=== PATIENT | female | born 1950 | race Caucasian/White ===

== ENCOUNTER 2024-09-25 09:33 | Emergency (ER) | payer MEDICARE, BC, SELFPAY ==
[2024-09-25 09:35] VITALS: BP 126/71; PULSE 56; RESP 18; TEMP 36.5; O2SAT 96; BMI 29.5
--- OUTSIDE RECORDS SUMMARY | 2024-09-25 09:35 | XMS_ITS | Clinical Summary ---
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 40 units = 1 mcg (5000 units = 125 mcg) Active CALCIUM ORAL Take 1 Tablet by mouth once daily. Active acetaminophen (TYLENOL EXTRA STRGTH) 500 mg tablet Take 1,000 mg by mouth. 09/20/2021 Active atorvastatin 20 mg tabletIndication s:Dyslipidemia, goal LDL below 100 Take 1 Tablet (20 mg) by mouth at bedtime. 90 Tablet 3 08/07/2024 Active sertraline 100 mg tabletIndication s:Depressive disorder,Anxiety state Take 1/2 tablet by mouth daily 45 Tablet 3 08/07/2024 Active metoprolol succinate 50 mg sustained-releas e tabletIndication s:ST elevation myocardial infarction involving left circumflex coronary artery (HC) Take 1 Tablet (50 mg) by mouth once daily. 90 Tablet 3 08/07/2024 Active lisinopriL 2.5 mg tabletIndication s:ST elevation myocardial infarction involving left circumflex coronary artery (HC) Take 1 Tablet (2.5 mg) by mouth once daily. 90 Tablet 3 08/07/2024 Active apixaban 5 mg tabletIndication s:Paroxysmal A-fib (HC) Take 1 Tablet (5 mg) by mouth two times daily. 180 Tablet 3 08/07/2024 Active Active Problems Problem Noted Date Diagnosed Date Atherosclerosis of [place] co ronary artery of [place] heart with angina pectoris 03/15/2022 Paroxysmal A-fib 08/03/2021 STEMI (ST elevation myocardial infarction) 06/01 Primary osteoarthritis of left knee 03/22/2019 Overview (05/31/2020): Added automatically from request for surgery [id number] Hyperthyroidism 01/28/2011 Overview (10/24/2012): Graves disease Anxiety state, unspecified 10/23/2006 Mild depression 06/16/2006 Resolved Problems Problem Noted Date Diagnosed Date Resolved Date Anticoagulation monitoring, DOAC 03/30/2022 07/11/2022 Anticoagulation monitoring, INR range 2-3 08/04/2021 03/30/2022 Major depressive disorder, s ksenia episode, mild 03/09/2021 03/15/2022 Low TSH level 01/13/2011 04/24/2019 Paroxysmal atrial fibrillation 10/29/2010 04/24/2019 Unspecified mastoiditis 06/16/200604/06 Overview (06/16/2006): 40% hearing loss Encounters Date Type Department Care Team Description 09/25/2024 Nurse Triage [facility] [address] [place] [address] Christoph Garcia MD thigh pain 08/07/2024 10:50 AM CDT Office Visit [facility] [address] [place] [address] Christoph Garcia MD Medication Management (refills) 08/07/2024 Travel 08/03/2024 Travel from Last 3 Months Immunizations Immunization Administration Dates Next Due AMB Influenza, IIV4 PF (=>6 mos Flulaval,Fluzone Fluarix)(Flu Clinic Only) 12/12/2014 COVID-19 vaccine (Pfizer-Bio NTech 30mcg/0.3mL) 12YO+ TOO-SUCROSE PF, MDV 08/03/2021 COVID-19 vaccine (VoucherlinkBio NTech 30mcg/0.3mL) PF, MDV 05/13/2020,04/22/2020 Influenza Virus, Unspecified 12/18/2007,01/26/20 05 Influenza, High-dose Inactivated 019,10/16/2017,02/24/2016,2015 Influenza, High-dose Quadriv alent Inactivated 11/13/2022,12/15/2021 Influenza, IIV3 (Age 6-35 mos) 12/13/2010 Influenza, IIV3 (Age >=3 years) 12/14/19 11,12/14/2009,12/18/2007,2004 Influenza, IIV4 12/12/2014 Influenza, Inactivated AIIV4 (Age 65+ Years) Preserv Free 02/24/2021,11/14/2019 Influenza, Inactivated IIV3 (Age 65+ Years) Preserv Free 11/05/2018,01/04/2017 Pneumococcal Conj 20-valent (Prevnar 20) 08/03/2021 Pneumococcal conj 13-Valent (Prevnar 13) 03/12/2019 Td (Age >=7 Years) 07/24/1995 Tdap 06/14/2011 Zoster (Zostavax-ZVL, live) 02/29/2008 Family History Medical History Relation Name Comments Heart Disease Brother - jj rcycle accident Heart Disease Mother Hypertension Mother Cancer-breast No Family History Cancer-ovarian No Family History Relation Name Status Comments Brother Mother Social History Tobacco Use Types Packs/Day Years Used Date Smoking Tobacco: Never Smokeless Tobacco: Never Tobacco Cessation:Counseling Given: Yes Alcohol Use Standard Drinks/Week Comments No 0 (1 standard drink = 0.6 oz pur e alcohol) PHQ-2 Answer Date Recorded PHQ-2 TOTAL SCORE 0 08/07/2024 Social Connections Answer Date Recorded Do you often feel lonely or isolated from those around you? 0 08/07/2024 Financial Resource Strain Answer Date R ecorded Difficulty of Paying Living Expenses 3 08/07/2024 Difficulty of Paying Living Expenses Not on file 08/07/2024 Food Insecurity Answer Date Recorded Do you worry your food will run out before you are able to buy more? 1 08/07/2024 Transportation Needs Answer Date Record ed Does lack of transportation keep you from medica l appointments? 1 08/07/2024 Does lack of transportation keep you from work, meetings or getting things that you need? 1 08/07/2024 Housing Stability Answer Date Recorded What is your housing situation today? 1 08/07/2024 Utilities Answer Date Recorded Do you have trouble paying f or utilities (for example, heat, electricity, water, phone)? 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 Not on file Not on file Not on file Obstetrics History Para Term AB IAB SAB Ectopic Multiple Livin g Live Births 3 3 3 Date Outcome GA Total Labor Labor/2nd/3rd Weight Sex Type Anes PTL Kiarra A1 A5 Name Clin Term Term Term Last Filed Vital Signs Vital Sign Reading Time Taken Comments Blood Pressure 104/66 08/07/2024 10:57 AM CDT Pulse 70 08/07/2024 10:57 AM CDT Temperature 36.7 C (98 F) 07/25/2023 12:42 PM CDT Respiratory Rate 14 06/02/2020 7:22 AM CDT Oxygen Saturation 96% 08/07/2024 10:57 AM CDT Inhaled Oxygen Concentration - - Weight 89.4 kg (197 lb) 08/07/2024 10:57 AM CDT Height 167.6 cm (5' 6) 08/07/2024 10:57 AM CDT Body Mass Index 31.8 08/07/2024 10:57 AM CDT Plan of Treatment Health Maintenance Due Date Last Done Comments Hepatitis C screening for age 18-79 07/06/1967 Zoster (shingles) series for age 50+ (2 of 3) 04/25/2008 02/29/2008 Tetanus booster 06/13/2021 06/14/2011, 07/24/1995 Medicare Wellness for age 65+ 09/02/2023 09/01/2022 COVID-19 vaccine series ( season) 2024 11/28/2023, 11/13/2022, 12/15/2021, Additional history exists RSV vaccine for adults or (1 - 1-dose 75+ series) 2024 Influenza Vaccine (#1) 2024 2, 11/14/2019, 12/27/2018, Additional history exists BMI (ht and wt on same day) for age 18+ 08/07/2025 08/07/2024, 10/04/2023, 07/25/2023, Additional history exists Depression screening for age 12+ 08/07/2025 08/07/2024, 10/04/2023, 09/01/2022, Additional history exists Colonoscopy through age 75 08/20/2028 08/20/2018, Lipids for age 45-75 08/07/2029 08/07/2024, 09/01/2022, 08/03/2021, Additional history exists Pneumococcal series for age 50+ Completed 08/03/2021, 03/12/2019 DEXA/DXA scan for age 65+ Completed 08/26/2021, Hepatitis B series for 19+ Aged Out N o longer eligible based on patient's age to complete this topic Procedures Procedure Name Priority Date/Time Associated Diagnosis Comments CBC WITH AUTO DIFFERENTIAL Routine 08/07/2024 11:41 AM CDT Hyperthyroidism BASIC METABOLIC PANEL Routine 08/07/2024 11:41 AM CDT Paroxysmal A-fib (HC) LIPID PANEL W REFLEX MEASURED LDL Routine 08/07/2024 11:41 AM CDT Dyslipidemia, goal LDL below 100 ALT (SGPT) Routine 08/07/2024 11:41 AM CDT Dyslipidemia, goal LDL below 100 TSH Routine 08/07/2024 11:41 AM CDT Hyperthyroidism XR DXA BONE DENSITY 2 SITES AXIAL Routine 08/26/2021 1:54 PM CDT Menopause SCAN-COLONOSCOPY 08/20/2018 12:0 0 AM CDT from Last 3 Months or Most Recently Relevant to Health Maintenance Results * LIPID PANEL W REFLEX MEASURED LDL (08/07/2024 11:41 AM CDT) CHOLESTEROL, TOTAL 148 <200 mg/dL [facility] HDL CHOLESTEROL 55 > OR = 50 mg/dL [facility] TRIGLYCERIDES 126 <150 mg/dL [facility] LDL-CHOLESTEROL 72 mg/dL (calc) [facility] Comment: Reference range: <100 Desirable range <100 mg/dL for primary prevention; <70 mg/dL for patients with CHD or diabetic patients with > or = 2 CHD risk factors. LDL-C is now calculated using the Suraj calculation, which is a validated novel method providing better accuracy than the Friedewald equation in the estimation of LDL-C. Jordan SS et al. ISAIAH. 2013;310(19): 5833-1657 (http://education.vendome 1699/faq/EVK755) CHOL/HDLC RATIO 2.7 <5.0 (calc) [facility] NON HDL CHOLESTEROL 93 <130 mg/dL (calc) [facility] Comment: For patients with diabetes plus 1 major ASCVD risk factor, treating to a non-HDL-C goal of <100 mg/dL (LDL-C of <70 mg/dL) is considered a therapeutic option. Blood BLOOD SPECIMEN / Unknown 08/07/2024 11:41 AM CDT 08/07/2024 11:41 AM CDT us Christoph Garcia MD CHEMISTRY Final Re sult [facility] [address] [place] [address], [facility] [address] [place] [address] * TSH (08/07/2024 11:41 AM CDT) Pathologist [facility] TSH 1.35 0.40 - 4.50 mIU/L [facility] Blood BLOOD SPECIMEN / Unknown 08/07/2024 11:41 AM CDT 08/07/2024 11:41 AM CDT Christoph Garcia MD CHEMISTRY Final Re sult [facility] [address] [place] [address], [facility] [address] [place] [address] * CBC AND DIFFERENTIAL (08/07/2024 11:41 AM CDT) Pathologist [facility] WHITE BLOOD CELL COUNT 4.9 3.8 - 10.8 Thousand/u L [facility] RED BLOOD CELL COUNT 4.66 3.80 - 5.10 Million/uL [facility] HEMOGLOBIN 14.4 11.7 - 15.5 g/dL [facility] HEMATOCRIT 44.3 35.0 - 45.0 % [facility] MCV 95.1 80.0 - 100.0 fL [facility] MCH 30.9 27.0 - 33.0 pg [facility] MCHC 32.5 32.0 - 36.0 g/dL [facility] Comment: For adults, a slight decrease in the calculated MCHC value (in the range of 30 to 32 g/dL) is most likely not clinically significant; however, it should be interpreted with caution in correlation with other red cell parameters and the patient's clinical condition. RDW 13.0 11.0 - 15.0 % [facility] PLATELET COUNT 218 140 - 400 Thousand/u L [facility] MPV 9.4 7.5 - 12.5 fL [facility] ABSOLUTE NEUTROPHILS 2,773 1,500 - 7,800 cells/uL [facility] ABSOLUTE LYMPHOCYTES 1,318 850 - 3,900 cells/uL [facility] ABSOLUTE MONOCYTES 691 200 - 950 cells/uL [facility] ABSOLUTE EOSINOPHILS 88 15 - 500 cells/uL [facility] ABSOLUTE BASOPHILS 29 0 - 200 cells/uL [facility] NEUTROPHILS 56.6 % [facility] LYMPHOCYTES 26.9 % [facility] MONOCYTES 14.1 % [facility] EOSINOPHILS 1.8 % [facility] BASOPHILS 0.6 % [facility] Blood BLOOD SPECIMEN / Unknown 08/07/2024 11:41 AM CDT 08/07/2024 11:41 AM CDT Christoph Garcia MD HEMATOLOGY Final Re sult [facility] [address] [address], [facility] [address] [place] [phone] * ALT (SGPT) (08/07/2024 11:41 AM CDT) ALT 16 6 - 29 U/L [facility] Blood BLOOD SPECIMEN / Unknown 08/07/2024 11:41 AM CDT 08/07/2024 11:41 AM CDT Christoph Garcia MD CHEMISTRY Final Re sult Performing Organization Address City/[facility]/ZIP Co de Phone Number [email or web address] [address] [address], [facility] [address] [place] [address] * (ABNORMAL) BASIC METABOLIC PANEL (08/07/2024 11:41 AM CDT) GLUCOSE 100(H) 65 - 99 mg/dL [facility] Comment: Fasting reference interval For someone without known diabetes, a glucose value between 100 and 125 mg/dL is consistent with prediabetes and should be confirmed with a follow-up test. UREA NITROGEN (BUN) 18 7 - 25 mg/dL [facility] CREATININE 0.77 0.60 - 1.00 mg/dL [facility] EGFR 80 > OR = 60 mL/min/1. 73m2 [facility] BUN/CREATININE RATIO SEE NOTE: 6 - 22 (calc) [facility] Comment: Not Reported: BUN and Creatinine are within reference range. SODIUM 138 135 - 146 mmol/L [facility] POTASSIUM 4.7 3.5 - 5.3 mmol/L [facility] CHLORIDE 104 98 - 110 mmol/L [facility] CARBON DIOXIDE 24 20 - 32 mmol/L [facility] ELECTROLYTE BALANCE 10 7 - 17 mmol/L (calc) [facility] CALCIUM 10.6(H) 8.6 - 10.4 mg/dL [facility] Blood BLOOD SPECIMEN / Unknown 08/07/2024 11:41 AM CDT 08/07/2024 11:41 AM CDT us Chritsoph Garcia MD CHEMISTRY Final Re sult [facility] [address] [place] [address], [facility] [address] [place] [address] * (ABNORMAL) XR DXA BONE DENSITY 2 SITES AXIAL (08/26/2021 1:54 PM CDT) Anatomical Region Laterality Modality Spine, HIPS, HIPL, HIPR Other Impressions 09/01/2021 9:40 AM CDT Osteopenia. RECOMMENDATIONS: The National Osteoporosis Foundation recommends pharmacologic treatment for patients with T-scores of -2.5 or less, patients with prior history of fragility fractures, or patients with 10-year probability of greater than 3% at hips or greater than 20% of suffering major osteoporotic fractures. Recommend continued optimization of calcium and vitamin D intake through dietary means and/or supplementation and regular exercise. Consider pharmacologic therapy for osteopenia with increased fracture risk. Follow-up bone density reading in 2 years if therapy initiated to assess therapeutic efficacy. Mahi Carrizales PA-C [facility] 09/01/2021 Narrative 09/01/2021 9:40 AM CDT For Patients: Results are automatically released to your [facility] account once available, in compliance with federal regulations. This means that you may see your results before your provider has had a chance to review them. Please allow 2-3 business days for your provider to comment on the results. XR DXA Bone Mineral Density (BMD) EXAM LOCATION: [facility] [address] [facility] [address] PATIENT NAME: Margo Quintana DATE OF : 1950 EXAM DATE: 08/26/2021 REQUESTING PROVIDER: Christoph Garcia MD GENDER AT : female HEIGHT: 5' 6 (08/03/2021) WEIGHT: 197 lb (08/03/2021) MENOPAUSAL STATUS: Postmenopausal RACE/ETHNICITY: White RISK FACTORS: Height Loss (2 inches or more), History of Fragility Fracture (at a major site) and White Race CURRENT MEDICATION FOR BONE LOSS: NONE INDICATION: Menopause COMPARISON DATE(S): None DXA scans are compared to prior studies for a patient only when the two (or more) studies were performed on the same scanner. It is not possible to compare data generated on one scanner to data from another because there are not standards in DXA equipment. This applies even if the two scanners are made by the same irrigation engineer. PROCEDURE: Dual-energy x-ray absorptiometry performed with routine technique. Reporting is completed in the form of a T-score. The T-score represents the standard deviation from peak bone mass based on young healthy adult. A Z-score is used for diagnosis in premenopausal women, and for men under the age of 50. FINDINGS: RESULT LUMBAR SPINE L1 - L4 BMD: 0.974 g/cm2 T-Score: - 1.8 Z-Score: - 0.9 Change from prior: None RESULTS FEMUR Left femoral neck BMD: 0.720 g/cm2 T-Score: - 2.3 Z-Score: - 1.0 Change from prior: None Right femoral neck BMD: 0.771 g/cm2 T-Score: - 1.9 Z-Score: - 0.7 Change from prior: None Left hip BMD: 0.748 g/cm2 T-Score: - 2.1 Z-Score: - 1.1 Change from prior: None Right hip BMD: 0.730 g/cm2 T-Score: - 2.2 Z-Score: - 1.2 Change from prior: None WHO criteria: Normal: T-score at or above -1 SD Osteopenia: T-score between -1.1 and -2.4 SD Osteoporosis: T-score at or below -2.5 SD FRAX RISK CALCULATION (USED FOR OSTEOPENIA ONLY): 10-year probability of major osteoporotic fracture: 20.9%. 10-year probability of hip fracture: 5.0%. 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
--- OUTSIDE RECORDS SUMMARY | 2024-09-25 09:35 | XMS_ITS | Clinical Summary ---
[facility] Address [address] [address] Care Team Providers Care Matte Cutter Name Role Phone Votel, Christoph Mccabe MD Primary Care Provider + Source Comments You are receiving this document as you are listed as the primary care provider,follow-up provider, or the patient has been referred to you for consultation.This is in compliance with the Medicare and[facility] EHR Incentive Program,which states Providers who transition their patient to another setting of careor provider of care or refers their patient to another provider of care shouldprovide summary care record for each transition of care or referral. Normal Allergies Active Allergy Reactions Criticality Noted Date Comments Oxycodone 06/20/2016 Nausea and sweating Sulfa Antibiotics 07/16/2010 PN: LW Reaction: HIVES Sulfasalazine Edema,generalized 07/16/2010 PN: LW Reaction: HIVES Medications cholecalciferol (VITAMIND3) 25 MCG (1000 UT) capsule Take 1 Capsule (1,000 Units) by mouth. 12/03/19 10 Active calcium Administer intravenously. Active Calcium 250 MG CAPS Take 4 Capsules (1,000 mg) by mouth. 12/03/19 10 Active loperamide (IMODIUM) 2 MG capsule Take 4mg by mouth with 1st loose stool, then 2mg with each subsequent loose stool. Max 16 mg in 24 hrs 07/07/19 18 Active sertraline (ZOLOFT) 100 MG tablet TAKE ONE HALF (1/2) TABLET BY MOUTH EVERY DAY 08/07/19 19 Active metoprolol succinate (TOPROL XL) 50 MG 24 hour release tablet Take 1 Tablet (50 mg) by mouth daily. Active atorvastatin (LIPITOR) 10 MG tablet Take 1 Tablet (10 mg) by mouth daily. Every day HS Active lisinopril (ZESTRIL) 2.5 MG tablet Take 1 Tablet (2.5 mg) by mouth daily. HOLD until . 30 Tablet 09/22/19 22 Active apixaban (ELIQUIS) 5 MG tablet Take 1 Tablet (5 mg) by mouth two times a day. Resume after reduced dosing complete. Do not start before August 24, 2023. 08/24/19 24 Active acetaminophen (TYLENOL) 500 MG tablet Take 2 Tablets (1,000 mg) by mouth three times a day. Maximum acetaminophen dose is 4000 mg in 24 hours. 100 Tablet 08/18/19 24 Active HYDROmorphone (DILAUDID) 2 MG tablet Take 1-2 Tablets (2-4 mg) by mouth every 4 hours as needed for Pain. 40 Tablet 08/18/19 24 Active docusate sodium (COLACE) 100 MG capsule Take 1 Capsule (100 mg) by mouth two times daily as needed for Constipation. 100 Capsule 08/18/19 24 Active hydrOXYzine pamoate (VISTARIL) 25 MG capsule Take 1 Capsule (25 mg) by mouth three times a day as needed for Itching, Anxiety or Pain. 30 Capsule 08/18/19 24 Active ondansetron (ZOFRAN-ODT) 4 MG disintegrating tablet Take 1 Tablet (4 mg) by mouth every 8 hours as needed for Nausea (Vomiting). Dissolve tablet on tongue. 30 Tablet 08/18/19 24 Active senna (SENOKOT) 8.6 MG tablet Take 1 Tablet by mouth at bedtime as needed for Constipation (Constipation (while on pain pills)). 100 Tablet 08/18/19 24 Active Active Problems Problem Noted Date Diagnosed Date Primary osteoarthritis of right knee 03/16/2023 CAD (coronary artery disease) 09/21/2021 Primary osteoarthritis of right hip 07/16/2021 Overview (07/16/2021): Added automatically from request for surgery [id number] Primary osteoarthritis of left knee 03/22/2019 Overview (03/22/2019): Added automatically from request for surgery [id number] [facility] 01/28/2011 Overview (07/03/2019): Overview: Graves disease Paroxysmal atrial fibrillation 10/29/2010 Anxiety state 10/23/2006 Mild depression 06/16/2006 Social History Tobacco Use Types Packs/Day Years Used Date Smoking Tobacco: Never Smokeless Tobacco: Never Alcohol Use Standard Drinks/Week Comments Yes 0 (1 standard drink = 0.6 oz pur e alcohol) Comments No Sex and Gender Information Value Date Recorded Sex Assigned at Not on file Legal Sex Female 4:28 PM CDT Gender Identity Not on file Sexual Orientation Not on file Last Filed Vital Signs Vital Sign Reading Time Taken Comments Blood Pressure 116/70 08/18/2023 2:17 PM CDT Pulse 66 08/18/2023 2:17 PM CDT Temperature 36.9 C (98.4 F) 10/20/2023 9:54 AM CDT Respiratory Rate 16 08/18/2023 2:17 PM CDT Oxygen Saturation 96% 08/18/2023 2:17 PM CDT Inhaled Oxygen Concentration - - Weight 81.6 kg (180 lb) 10/20/2023 9:54 AM CDT Height 172.7 cm (5' 8) 10/20/2023 9:54 AM CDT Body Mass Index 27.37 10/20/2023 9:54 AM CDT Plan of Treatment Health Maintenance Due Date Last Done Comments Colon Cancer Screening Plan Due 1950 Hep C Screening (Preventive Services) 1950 Zoster/Shingles Vaccine (2 of 3) 04/25/2008 02/29/2008 DTaP/Tdap/Td Vaccine (2 - Tdap) 06/13/2021 06/14/2011 Mammogram 01/12/2023 01/12/2022, 10/25/2007 Medicare Annual Wellness Visit 09/02/2023 09/01/2022 COVID-19 Vaccine ( season) 2023 11/13/2022, 12/15/2021, 08/03/2021, Additional history exists RSV Vaccine (1 - 1-dose 75+ series) 2024 Influenza Vaccine (#1) 2024 , 12/15/2021, 02/24/2021, Additional history exists Pneumococcal Vaccine 50+ Yrs Completed 08/03/2021, 03/12/2019 Dexa Completed 09/09/2021, 08/26/2021 HepA Vaccine Aged Out No longer eligi ble based on patient's age to complete this topic HepB Vaccine Aged Out No longer eligi ble based on patient's age to complete this topic Hib Vaccine Aged Out No longer eligi ble based on patient's age to complete this topic MCV4 Vaccine Aged Out No longer eligi ble based on patient's age to complete this topic Meningococcal B Vaccine Aged Out No l onger eligible based on patient's age to complete this topic Goals Goal Patient Goal Type Associated Problems Recent Progress Patient-Stated? Author Right Knee Replacement Care Plan ET PROE RIGHT KNEE No Michaela Adam MD Medical Devices Implanted Type Area Cctv Technician Device Identifier Shelf Expiration Date Model / Serial / Lot Madhav Bone Biomet R 1x40 - [id number] Implanted:Qty : 1 on 09/03/2019 by Michaela Adam MD at [facility] Left: KNEE [employer] 11/06/2023 [id number] / 0 / [id number] Comp Patellar Gen 35mm - [id number] Implanted:Qty : 1 on 09/03/2019 by Michaela Adam MD at [facility] [employer] Left: KNEE [employer] 01/18/2029 [id number] / 0 / [id number] Comp Ps Legion Sz5 Lt - [id number] Implanted:Qty : 1 on 09/03/2019 by Michaela Adam MD at [facility] [employer] Left: KNEE [employer] 04/05/2029 [id number] / 0 / [id number] Insert Ps Hiflex Sz56 11mm - [id number] Implanted:Qty : 1 on 09/03/2019 by Michaela Adam MD at [facility] [employer] Left: KNEE [employer] 05/26/2028 [id number] / 0 / [id number] Baseplt Tib Metl Gensis Sz5 Lt - [id number] Implanted:Qty : 1 on 09/03/2019 by Michaela Adam MD at [facility] Left: KNEE [employer] 03/29/2029 [id number] / 0 / [id number] Stem Prim Porous Dist 33k018 - [id number] Implanted:Qty : 1 on 09/20/2021 at [facility] DEVICE Right: HIP [employer] 09/23/2030 [id number] / / [id number] Hd Fem Cer Delta 36/-3mm - [id number] Implanted:Qty : 1 on 09/20/2021 at [facility] DEVICE Right: HIP [employer] 04/22/2031 [id number] / / [id number] Shell Acet G7 Ltd 54f - [id number] Implanted:Qty : 1 on 09/20/2021 at [facility] DEVICE Right: HIP [employer] 08/12/2031 [id number] / / [id number] Liner G7 Neut Lngvty 36mm F - [id number] Implanted:Qty : 1 on 09/20/2021 at [facility] DEVICE Right: HIP [employer] 07/28/[id number] / / [id number] Scr Sftp 6.5x20 - [id number] Implanted:Qty : 1 on 09/20/2021 at [facility] DEVICE Right: HIP [employer] 08/05/2031 [id number] / / [id number] Scr Sftp 6.5x25 - [id number] Implanted:Qty : 1 on 09/20/2021 at [facility] DEVICE Right: HIP [employer] 07/18/2031 [id number] / / [id number] Madhav Bone Biomet R 1x40 - [id number] Implanted:Qty : 1 on 08/18/[facility]: KNEE [employer] 01/05/2026 [id number] / 0 / [id number] Stem Tib 5deg Szf Rt - [id number] Implanted:Qty : 1 on 08/18/2023 by Michaela Adam MD at [facility] Right: K[employer]EE [employer] 05/31/2033 [id number] / 0 / [id number] Comp Fm Ps Ccr Cr Narw Sz9 Rt Xx - [id number] Implanted:Qty : 1 on 08/18/2023 by Michaela Adam MD at [facility] Right: K[employer]EE [employer] 03/18/2033 [id number] / 0 / [id number] Psn Art Ve Sz11 811/Ef Rt - [id number] Implanted:Qty : 1 on 08/18/2023 by Michaela Adam MD at [facility] Right: K[employer] 01/04/2028 [id number] / 0 / [id number] Procedures Procedure Name Priority Date/Time Associated Diagnosis Comments BONE DENSITY 09/09/2021 from Last 3 Months or Most Recently Relevant to Health Maintenance Results * BONE DENSITY (09/09/2021) Anatomical Region Laterality Modality Other us Interface Provider DUMMY/OTHER/AR Final Resu lt from Last 3 Months or Most Recently Relevant to Health Maintenance Additional Health Concerns Active Problems Noted Date Diagnosed Date ET PROE RIGHT KNEE 03/16/2023 Insurance MEDICARE BCBS MEDICARE SUPPLEMENT MEDICARE BCBS MEDICARE SUPPLEMENT MEDICARE Advance Directives * Full Code (Latest Code Status on File) Date Activated Date Inactivated Comments 08/18/2023 10:58 AM 08/18/2023 4:37 PM * Full Code Date Activated Date Inactivated Comments 09/20/2021 5:47 PM 09/21/2021 5:05 PM * Full Code Date Activated Date Inactivated Comments 09/03/2019 7:10 AM 09/03/2019 12:41 PM Full code i n effect for 30 days Care Teams Matte Cutter Relationship Specialty Start Date End Date Votel, Christoph Mccabe MD [address] [place] [address] PCP - General Family Practice 08/08/16
--- NOTE | 2024-09-25 10:04 | CRLHL7_ITS ---
For Patients: As a result of the Century Cures Act, medical imaging exams and procedure reports are released immediately into your electronic medical record. You may view this report before your referring provider. If you have questions, please contact your health care provider. INDICATION: Left thigh pain TECHNIQUE: Ultrasound venous duplex lower left extremity. Compression venous exam was performed using madison-scale, color Doppler, and spectral Doppler analysis. COMPARISON: None. FINDINGS: Deep veins: Sonographic imaging demonstrates the left common femoral, deep femoral, superficial femoral, popliteal, posterior tibial, peroneal, and the contralateral right common femoral veins to be fully compressible with normal color Doppler blood flow. Superficial veins: Proximal greater saphenous vein is patent. IMPRESSION: No deep venous thrombosis. Dictated by Paty Horta MD @ 09/25/2024 11:25:20 AM (Electronically Signed)
--- NOTE | 2024-09-25 10:04 | ED.GENADULT ---
HPI - General Adult General Chief complaint: Extremity Pain/Injury, Lower Stated complaint: possible blood tulio on left leg Time Seen by Provider: 09/25/24 09:44 History of Present Illness HPI narrative: Patient is a 74 year white female who is on blood thinner currently Eliquis, she had a cardio version and ablation it sounds like. She is also on atorvastatin, lisinopril, metoprolol, sertraline. She noticed yesterday and today some left thigh tenderness that she was concerned about a clot. She has been taking her Eliquis regularly she reports. The patient iced it and it felt better. It is less swollen today. She has had no fever, chills, redness or warmth of the area of the thigh. It is just slightly tender to touch by her report. No other symptoms such as bowel or bladder incontinence back pain. Patient reports she had AFib and had an ablation that is why she is on the Eliquis. 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 She did not have a stent or bypass. Interestingly her daughter had a vertebral artery dissection and they are in a study at [place]. Related Data Home Medications ?Medication ?Instructions ?Recorded ?Confirmed atorvastatin 20 mg tablet 20 mg PO QPM 09/25/24 09/25/24 lisinopril 2.5 mg tablet 2.5 mg PO DAILY 09/25/24 09/25/24 metoprolol succinate 50 mg 50 mg PO DAILY 09/25/24 09/25/24 tablet,extended release 24 hr sertraline 100 mg tablet 50 mg PO DAILY 09/25/24 09/25/24 Allergies Allergy/AdvReac Type Severity Reaction Status Date / Time Sulfa (Sulfonamide Allergy Intermediate swelling Verified 09/25/24 09:44 Antibiotics) in throat, face Review of Systems Status of ROS: Reports: 6 or more systems reviewed and unremarkable except as noted in History and below Exam Narrative: Exam Narrative: Objective: In general the patient is in no apparent distress Alert orient x3 Vital signs are within normal limits. O2 sat 96% on room air Right eye exam shows no warmth erythema full range of motion of the knee no distal leg swelling. Varicosities in the left lower extremity and right lower extremity noted. No palpable venous cords in the leg Const: Vital Signs, click to edit/add: Vital Signs - 24 hr 09/25/24 09:35 Temperature 97.7 F Pulse Rate [Pulse Oximeter] 56 L Respiratory Rate 18 Blood Pressure [Ri ght Upper Arm] 126/71 Pulse Oximetry 96 Oxygen Delivery Me thod Room Air Course Vital Signs Vital signs: Initial Vital Signs Temperature 97.7 F 09/25/24 09:35 Temperature Source Temporal Artery Scan 09/25/24 09:35 Pulse Rate 56 L 09/25/24 09:35 Respiratory Rate 18 09/25/24 09:35 Blood Pressure 126/71 09/25/24 09:35 Blood Pressure Mean 89 09/25/24 09:35 Blood Pressure Position Sitting 09/25/24 09:35 Pulse Oximetry 96 09/25/24 09:35 Oxygen Delivery Method Room Air 09/25/24 09:35 Vital Signs Temperature 97.7 F 09/25/24 09:35 Pulse Rate 56 L 09/25/24 09:35 Respiratory Rate 18 09/25/24 09:35 Blood Pressure 126/71 09/25/24 09:35 Pulse Oximetry 96 09/25/24 09:35 Oxygen Delivery Method Room Air 09/25/24 09:35 Temperature 97.7 F 09/25/24 09:35 Pulse Rate 56 L 09/25/24 09:35 Respiratory Rate 18 09/25/24 09:35 Blood Pressure 126/71 09/25/24 09:35 Pulse Oximetry 96 09/25/24 09:35 Oxygen Delivery Method Room Air 09/25/24 09:35 Medical Decision Making MDM Narrative Medical decision making narrative: [age] year white female with left thigh tenderness improved today, question muscular question DVT. Does not appear to be infectious. Patient has had no fever, no warmth no erythema. No veins it looked like there thrombophlebitis. At this point I think just simply relying a DVT would be appropriate unlikely given she is on blood thinner. Will get ultrasound of her left lower extremity. This is negative then symptomatic management ice light range of motion and light activity. Recheck with primary care in 3-4 days. Likely musculoskeletal source Addendum 11:00 a.m.: The patient has an ultrasound of her left lower extremity that is unremarkable for any DVT. At this point I would recommend ice as the patient seemed to benefit from, light activity, recheck next few days not improving changes or concerns. Likely has some musculoskeletal type issue. She and her daughter comfortable plan. Discharge Plan Discharge Clinical Impression: Acute pain of left thigh Patient Disposition: Home w/ Parent or Adult Condition: Stable Additional Instructions: Light activity, ice on a regular basis prep 5-10 minutes 4 to 5 times a day, may try some Advil or Aleve if you wish. Preferably just simply take Tylenol. Recheck with regular doctor 3-4 days, return to ED worsening or changes. Activity Level: Light activity Discharge Diet: Regular Prescriptions: No Action atorvastatin 20 mg tablet 20 mg PO QPM metoprolol succinate 50 mg tablet extended release 24 hr 50 mg PO DAILY sertraline 100 mg tablet 50 mg PO DAILY lisinopril 2.5 mg tablet 2.5 mg PO DAILY Follow Up/Referrals: Christoph Garcia MD [Primary Care Provider, Family Practice] Stand Alone Forms: [employer] Info Instructions
== END 2024-09-25 11:12 | disposition home or self-care (01) ==
PROVIDERS: Emergency Provider Family Medicine; PCP Family Medicine
DX: M79.652 Pain in left thigh (principal)
CPT/HCPCS: 93971; 99283; 99284